=== PATIENT | male | born 2000 | race Asian ===

== ENCOUNTER 2023-03-03 16:25 | Emergency (ER) | payer BC, OTHER ==
[2023-03-03] MEDS ORDERED: HYDROcodone/Acetaminophen 5/325 mg Tablet ONE (16:41)
[2023-03-03] MEDS ORDERED: CEFAZOLIN 2 GM VIAL ONE (16:42)
[2023-03-03] MEDS ORDERED: Sodium Chloride 0.9% 100 ML ONE (16:42)
[2023-03-03] MEDS ORDERED: Boostrix 0.5 ML (Tdap) VIAL (>/=7 yrs of age) ONE (16:44)
[2023-03-03] MEDS ORDERED: Lidocaine 1% w/Epinephrine 1:100K 20 ML VIAL ONE (18:39)
== END 2023-03-03 20:13 | disposition home or self-care (01) ==
LOC: ERS 16:25
DX: S81.011A Laceration without foreign body, right knee, initial encounter (principal); S80.212A Abrasion, left knee, initial encounter; F17.210 Nicotine dependence, cigarettes, uncomplicated; Z23 Encounter for immunization; W05.1XXA Fall from non-moving nonmotorized scooter, initial encounter
CPT/HCPCS: 12002; 90471; 90715; 96365; J3490

== ENCOUNTER 2023-03-14 17:44 | Emergency (ER) | payer BC, OTHER | END 2023-03-14 19:05 | disposition home or self-care (01) | LOC: ERS 17:44 | DX: S81.011D Laceration without foreign body, right knee, subsequent encounter (principal) ==